=== PATIENT | female | born 1930 | race Caucasian/White ===

== ENCOUNTER 2017-07-16 17:25 | Emergency (ER) | payer OTHER ==
[~2017-07-16] VITALS: Ht 157.5 cm; Wt 68.0 kg
[2017-07-16 17:43] VITALS: Ht 157.5 cm; Wt 68.0 kg
[2017-07-16 18:28] LABS: BASOPHIL # 0.1 10^3/ul (0.0-0.1); BASOPHILS % 0.6 % (0.0-2.0); EOSINOPHILS # 0.2 10^3/ul (0.0-0.5); EOSINOPHILS % 1.2 % (0.0-7.0); HEMATOCRIT 45.2 % (37.0-47.0); HEMOGLOBIN 14.1 g/dl (12.0-16.0); LYMPHOCYTES # 1.2 10^3/ul (0.8-2.9); LYMPHOCYTES % 8.4 % (15.0-51.0); MEAN CORPUSCULAR HEMOGLOBIN 29.1 pg (29.0-33.0); MEAN CORPUSCULAR HGB CONC 31.2 g/dl (32.0-37.0); MEAN CORPUSCULAR VOLUME 93.2 fl (82.0-101.0); MEAN PLATELET VOLUME 10.4 fl (7.4-10.4); MONOCYTE # 0.7 10^3/ul (0.3-0.9); MONOCYTES % 5.3 % (0.0-11.0); NEUTROPHIL # 11.6 10^3/ul (1.6-7.5); NEUTROPHILS % 83.3 % (39.0-77.0); PLATELET COUNT 329 10^3/UL (140-415); RED BLOOD COUNT 4.85 10^6/ul (4.20-5.40); RED CELL DISTRIBUTION WIDTH 14.4 % (11.5-14.5); WHITE BLOOD COUNT 13.9 10^3/ul (4.8-10.8)
--- NOTE | 2017-07-16 18:36 | RADRPT ---
PROCEDURE: XR Chest. CLINICAL INDICATION: Shortness of breath. TECHNIQUE: A single portable view of the chest was obtained. COMPARISON: None FINDINGS: The aorta is tortuous and atherosclerotic. The cardiomediastinal silhouette is otherwise mildly enl arged. Bibasilar air space disease is seen which may represent atelectasis. The remaining lungs and pleural spaces are clear. The soft tissues and osseous structures demonstrate benign age related se nescent changes. Right axillary surgical clips are seen. IMPRESSION: 1. Mild cardiomegaly. 2. Bibasilar air space disease which may represent atelectasis. RPTAT: HPNM Physician Sanjeev Date Time Electronically viewed and signed by Physician Sanjeev on 07/16/2017 18:35 /
--- NOTE | 2017-07-16 18:37 | RADRPT ---
PROCEDURE: XR Hip. CLINICAL INDICATION: Right hip pain. Trauma TECHNIQUE: AP and frog-leg lateral views of the right hip were obtained. COMPARISON: None FINDINGS: Diffuse osteopenia is seen. A heavily comminuted intertrochanteric fracture of the right hip is seen . Displacement and angulation of the fracture fragments is seen. No other fracture is seen. No dislo cation is seen. 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 Surgical clips are seen in the vis ualized portions of the pelvis. IMPRESSION: Heavily comminuted intertrochanteric right hip fracture as detailed above. RPTAT: HPNM Physician Sanjeev Date Time Electronically viewed and signed by Physician Sanjeev on 07/16/2017 18:36 /
[2017-07-16 18:43] LABS: INR 0.96; PROTIME 12.9 Sec (11.9-14.9)
[2017-07-16 18:44] LABS: PARTIAL THROMBOPLASTIN TIME 33.5 Sec (25.0-35.0)
[2017-07-16 18:51] LABS: ANION GAP 15 (8-16); BLOOD UREA NITROGEN 22 mg/dl (7-20); CALCIUM 9.6 mg/dl (8.4-10.2); CARBON DIOXIDE 29 mmol/L (21-31); CHLORIDE 102 mmol/L (97-110); CREATININE 0.89 mg/dl (0.44-1.00); GLUCOSE 121 mg/dl (70-220); POTASSIUM 4.5 mmol/L (3.5-5.1); SODIUM 141 mmol/L (135-144)
[2017-07-16 19:04] LABS: TROPONIN-I < 0.012 ng/ml (0.00-0.12)
--- NOTE | 2017-07-16 19:25 | ERD ---
ER Documentation Chief Complaint Chief Complaint Right hip pain with rotation s/p ground level fall today HPI Patient is an 86-year-old female who presents with a fall. She came from a [facility]. There is a suspected hip fracture as her right leg is shortened and rotated. She was brought in by ambulance. She said that she lost her balance and fell around 4:30 PM today. She was given morphine 8 mg IV by paramedics. She is a full code. She had no other injuries. She is a [employer] member. ROS All systems reviewed and are negative except as per history of present illness. Allergies Allergies: Coded Allergies: No Known Allergy (Unverified , 07/16/17) PMhx/Soc History of Surgery: Yes (R-sided lumpectomy) Anesthesia Reaction: No Hx Neurological Disorder: No Hx Respiratory Disorders: Yes (COPD) Hx Cardiac Disorders: No Hx Psychiatric Problems: No Hx Miscellaneous Medical Probl: Yes (Breast CA) Hx Alcohol Use: No Hx Substance Use: No Hx Tobacco Use: No Smoking Status: Never smoker FmHx Family History: No diabetes Physical Exam Vitals Vital Signs Date Time Temp Pulse Resp B/P Pulse Ox O2 Delivery O2 Flow Rate FiO2 07/16/17 19:19 98.2 82 16 152/80 97 Room Air 2.0 07/16/17 17:43 98.1 98 18 152/85 91 Physical Exam Const: Moderate distress Head: Atraumatic Eyes: Normal Conjunctiva ENT: Normal External Ears, Nose and Mouth. Neck: Full range of motion..~ No meningismus. Resp: Clear to auscultation bilaterally Cardio: Regular rate and rhythm, no murmurs Abd: Soft, non tender, non distended. Normal bowel sounds Skin: No petechiae or rashes Back: No midline or flank tenderness Ext: Right leg shortening and rotated Neur: Awake and alert Psych: Normal Mood and Affect Result Diagram: 07/16/17181907/16/171819 Results 24 hrs Laboratory Tests Test 07/16/17 18:20 White Blood Count 13.910^3/ul Red Blood Count 4.8510^6/ul Hemoglobin 14.1g/dl Hematocrit 45.2% Mean Corpuscular Volume 93.2fl Mean Corpuscular Hemoglobin 29.1pg Mean Corpuscular Hemoglobin Concent 31.2g/dl Red Cell Distribution Width 14.4% Platelet Count 83705^3/UL Mean Platelet Volume 10.4fl Neutrophils % 83.3% Lymphocytes % 8.4% Monocytes % 5.3% Eosinophils % 1.2% Basophils % 0.6% Nucleated Red Blood Cells % 0.0/100WBC Neutrophils # 11.610^3/ul Lymphocytes # 1.210^3/ul Monocytes # 0.710^3/ul Eosinophils # 0.210^3/ul Basophils # 0.110^3/ul Nucleated Red Blood Cells # 0.010^3/ul Prothrombin Time 12.9Sec Prothrombin Time Ratio 1.0 INR International Normalized Ratio 0.96 Activated Partial Thromboplast Time 33.5Sec Sodium Level 141mmol/L Potassium Level 4.5mmol/L Chloride Level 102mmol/L Carbon Dioxide Level 29mmol/L Anion Gap 15 Blood Urea Nitrogen 22mg/dl Creatinine 0.89mg/dl Glucose Level 121mg/dl Calcium Level 9.6mg/dl Troponin I < 0.012ng/ml Procedures/MDM EKG read by me: Rate/Rhythm: Sinus tachycardia rate of 101 Intervals: Normal Impression: Sinus tachycardia without ischemia X-ray Hip 2V Interpreted by me: Bones: Right-sided intertrochanteric comminuted fracture Joints: No dislocation Foreign body: None Chest x-ray shows cardiomegaly per radiology. Patient is a 86-year-old female who presents with a mechanical fall and has a right-sided hip fracture. The patient has [facility] insurance and will be transferred to [facility] for continuity of care. The patient will need orthopedic fixation. She was given morphine 8 mg IV by paramedics just prior to arrival and feels better. I doubt other serious traumatic injury at this time. The patient will be transferred by ambulance to [facility]. Departure Diagnosis: Primary Impression: Hip fracture Encounter type: initial encounter Fracture type: closed Laterality: right Qualified Code: S72.001A - Closed fracture of right hip, initial encounter Additional Impression: Hip pain Laterality: right Qualified Code: M25.551 - Pain of right hip joint Condition: JOSÉ MIGUEL Heller MD Jul 16, 2017 19:25
[2017-07-16] MEDS ORDERED: HYDROmorphONE 1 MG/ML SYG IV STA (20:12)
[2017-07-16] MEDS ORDERED: SOD CHLORIDE 0.9% 1,000 ML IV STA (21:06)
[2017-07-16 22:00] VITALS: BP 158/89; PULSE 115; RESP 15
== END 2017-07-16 22:29 | disposition short-term general hospital (02) ==
LOC: E/R 17:25
DX: S72.001A Fracture of unspecified part of neck of right femur, initial encounter for closed fracture (principal); J44.9 Chronic obstructive pulmonary disease, unspecified; R06.02 Shortness of breath; W18.39XA Other fall on same level, initial encounter; Y92.009 Unspecified place in unspecified non-institutional (private) residence as the place of occurrence of the external cause; Z85.3 Personal history of malignant neoplasm of breast
CPT/HCPCS: 71010; 73510; 80048; 84484; 85025; 85610; 85730; 86850; 86900; 86901; 96374; 99285; J1170; J7030; 93005

== ENCOUNTER 2018-02-05 11:17 | Emergency (ER) | END 2018-02-05 16:37 | disposition short-term general hospital (02) ==

== ENCOUNTER 2018-04-24 04:45 | Emergency (ER) | END 2018-04-24 10:20 | disposition short-term general hospital (02) ==

== ENCOUNTER 2018-10-26 05:53 | Emergency (ER) | payer OTHER ==
[~2018-10-26] VITALS: Ht 162.6 cm; Wt 64.1 kg
[2018-10-26 06:02] VITALS: Ht 162.6 cm; Wt 64.1 kg
[2018-10-26] MEDS ORDERED: VANCOMYCIN 1 GM (PMX) 250 ML IVPB STA (06:43)
[2018-10-26] MEDS ORDERED: SOD CHLORIDE 0.9% 1,000 ML IV STA (06:43)
[2018-10-26] MEDS ORDERED: CEFEPIME 1GM/50 ML (PMX) 50 ML IVPB STA (06:43)
[2018-10-26] MEDS ORDERED: IPRATROPIUM (NEB) 0.5 MG/2.5 ML AMP INH ONE (07:00)
[2018-10-26] MEDS ORDERED: ALBUTEROL 0.083% (NEB) 2.5 MG/3 ML AMP INH ONE (07:00)
[2018-10-26] MEDS ORDERED: METHYLPREDNISOLONE 125 MG INJ IV ONE (07:00)
--- NOTE | 2018-10-26 08:56 | ERD ---
ER Documentation Chief Complaint Chief Complaint MALACHI from [facility], hallucinations,hx dementia HPI 88-year-old female from sn[facility] facility who presents to the emergency room with hallucinations. The patient does have baseline dementia. It appears over the past 24-48 hours the patient is having increasing hallucinations with paranoia. The patient herself describes approximately 1 day of cough and congestion. No significant shortness of breath though her oxygen saturation was noted to be 85 on room air. It is possibly reported that the patient has home oxygen requirement. Patient denies any chest pain or pressure, no headache, no abdominal pain nausea vomiting or diarrhea. ROS All systems reviewed and are negative except as per history of present illness. Allergies Allergies: Coded Allergies: No Known Allergy (Unverified , 10/26/18) PMhx/Soc History of Surgery: Yes (R-sided lumpectomy, HYSTERECTOMY) Anesthesia Reaction: No Hx Neurological Disorder: No Hx Respiratory Disorders: Yes (COPD) Hx Cardiac Disorders: Yes (HTN) Hx Psychiatric Problems: No Hx Miscellaneous Medical Probl: Yes (Breast CA) Hx Alcohol Use: No Hx Substance Use: No Hx Tobacco Use: No Smoking Status: Never smoker FmHx Family History: No diabetes Physical Exam Vitals Vital Signs Date Temp Pulse Resp B/P (MAP) Pulse Ox O2 O2 Flow FiO2 Time Delivery Rate 10/26/18 80 22 123/78 95 Mask 6.0 07:48 (93) 10/26/18 98.5 18 121/66 94 06:09 (84) 10/26/18 98.5 89 18 121/66 94 06:02 (84) Physical Exam General: Well developed, well nourished, no acute distress Head: Normocephalic, atraumatic. Eyes: Pupils equally reactive, EOM intact ENT: Moist mucous membranes Neck: Supple, no lymphadenopathy Respiratory: Scant wheezing bilaterally, rales on the right side lung field worse at the base. No respiratory distress Cardiovascular: RRR, no murmurs, rubs, or gallops Abdominal: Soft, non-tender, non-distended, no peritoneal signs : Deferred MSK: No edema, no unilateral swelling, 5/5 strength Neurologic: Patient is alert and oriented to person and place, conversive, moving all extremities. Skin: No rash Psych: Occasional hallucinations of paranoia Result Diagram: 10/26/1845 10/26/18644 Results 24 hrs Laboratory Tests Test 10/26/18 06:36 10/26/18 06:45 Urine Color YELLOW Urine Clarity CLOUDY Urine pH 5.0 Urine Specific [place] 1.016 Urine Ketones NEGATIVE mg/dL Urine Nitrite NEGATIVE mg/dL Urine Bilirubin NEGATIVE mg/dL Urine Urobilinogen NEGATIVE mg/dL Urine Leukocyte Esterase 3+ Diamante/ul Urine Microscopic RBC 4 /HPF Urine Microscopic WBC 131 /HPF Urine Bacteria MANY /HPF Urine Mucus FEW /HPF Urine Hemoglobin NEGATIVE mg/dL Urine Glucose NEGATIVE mg/dL Urine Total Protein NEGATIVE mg/dl Urine Opiates Screen Negative Urine Barbiturates Negative Urine Amphetamines Screen Negative Urine Benzodiazepines Screen Negative Urine Cocaine Screen Negative Urine Cannabinoids Negative White Blood Count 6.4 10^3/ul Red Blood Count 5.54 10^6/ul Hemoglobin 16.2 g/dl Hematocrit 49.8 % Mean Corpuscular Volume 89.9 fl Mean Corpuscular Hemoglobin 29.2 pg Mean Corpuscular Hemoglobin Concent 32.5 g/dl Red Cell Distribution Width 15.1 % Platelet Count 240 10^3/UL Mean Platelet Volume 11.1 fl Immature Granulocytes % 0.800 % Neutrophils % % Lymphocytes % % Monocytes % % Eosinophils % % Basophils % % Nucleated Red Blood Cells % 0.0 /100WBC Immature Granulocytes # 0.050 10^3/ul Neutrophils # 10^3/ul Lymphocytes # 10^3/ul Monocytes # 10^3/ul Eosinophils # 10^3/ul Basophils # 10^3/ul Nucleated Red Blood Cells # 10^3/ul Sodium Level 140 mmol/L Potassium Level 4.4 mmol/L Chloride Level 98 mmol/L Carbon Dioxide Level 34 mmol/L Anion Gap 8 Blood Urea Nitrogen 32 mg/dl Creatinine 1.01 mg/dl Est Glomerular Filtrat Rate mL/min mL/min Glucose Level 115 mg/dl Calcium Level 10.3 mg/dl Total Bilirubin 0.4 mg/dl Direct Bilirubin 0.00 mg/dl Indirect Bilirubin 0.4 mg/dl Aspartate Amino Transf (AST/SGOT) 44 IU/L Alanine Aminotransferase (ALT/SGPT) 22 IU/L Alkaline Phosphatase 54 IU/L Total Protein 6.8 g/dl Albumin 3.7 g/dl Globulin 3.10 g/dl Albumin/Globulin Ratio 1.19 Salicylates Level < 1.0 mg/dl Acetaminophen Level < 10.0 ug/ml Ethyl Alcohol Level < 10.0 mg/dl Current Medications Medications Dose Sig/Susie Start Time Status Last (Trade) Ordered Route PRN Stop Time Admin Dose Reason Admin Sodium 1,000 ml @ Q1H STAT 10/26/18 DC 10/26/18 Chloride 1,000 mls/hr IV 06:43 07:30 10/26/18 07:42 125 mg ONCE ONCE 10/26/18 DC 10/26/18 Methylprednis IV 07:00 07:32 olone Sodium 10/26/18 07:01 Succinate (Solu-Medrol) Albuterol 2.5 mg ONCE ONCE 10/26/18 DC 10/26/18 (Proventil INH 07:00 06:56 0.083% (Neb)) 10/26/18 07:01 Ipratropium 0.5 mg ONCE ONCE 10/26/18 DC 10/26/18 [place] INH 07:00 06:56 (Atrovent 10/26/18 07:01 0.02% (Neb)) Cefepime HCl 50 ml @ ONCE STAT 10/26/18 DC 10/26/18 100 mls/hr IVPB 06:43 07:32 10/26/18 07:12 Vancomycin 250 ml @ ONCE STAT 10/26/18 DC HCl 125 mls/hr IVPB 06:43 10/26/18 08:42 Procedures/MDM EKG, MONITORS, & DIAGNOSTIC IMAGING: Chest x-ray: I reviewed and interpreted a 1 view of the chest Mediastinum: No enlargement Cardiac silhouette: No cardiomegaly Airspace: Right lower lobe lung field atelectasis versus infiltrate Bones: No evidence of fracture LAB INTERPRETATION: I reviewed the laboratory testing and it shows no significant leukocytosis, positive urinary tract infection MEDICAL DECISION MAKING: The patient presents to the emergency room with possible hallucinations. However she is noted to have hypoxia, cough and right sided lung findings concerning for pneumonia. Given the patient's presentation this is possibly consistent with healthcare associated pneumonia. The patient has no Sirs criteria. She has no chest pain or chest pressure to suggest cardiac etiology. The patient's hallucinations are intermittent she is conversive and otherwise neurologically intact. I doubt acute intracranial process. The patient has evidence clinically of pneumonia and possible urinary tract infection which could explain her symptoms. Given the patient's age I believe she would benefit from breathing treatment, steroids given her underlying COPD as well as broad-spectrum antibiotics given h er intermediate residence. ER COURSE: * The patient does not meet SIRS criteria therefore does not require lactic acid or sepsis workup. Patient received IV fluids, breathing treatment, Solu- Medrol, vancomycin and cefepime * The patient's oxygen requirement has been titrated to nasal cannula. She is on 3-4 L. Given the patient's age, possible pneumonia and urinary tract infection inpatient hospitalization would be most appropriate. The patient is him dynamically stable not requiring positive pressure ventilation, central line or pressors * The patient is a [employer] member and will be transferred. She is stable for transfer and the benefits over the risks. CONSULTATION: [None] DISPOSITION PLAN: Accepting care team and consultations: I discussed the current laboratory data, diagnostic imaging and emergency care provided. [facility]. Medical authorization of [id number] Admitting team indication: Insurance directed Departure Diagnosis: Primary Impression: Healthcare-associated pneumonia Additional Impressions: Urinary tract infection Urinary tract infection type: acute cystitis Hematuria presence: without hematuria Qualified Codes: N30.00 - Acute cystitis without hematuria COPD with exacerbation History of dementia Condition: Stable BLACK SARAH MD Oct 26, 2018 08:56
[2018-10-26 10:50] VITALS: BP 164/81; PULSE 85; RESP 22
[2018-10-26] MEDS ORDERED: METO-448 PO (11:38)
[2018-10-26] MEDS ORDERED: ALBU2.5V3 NEB (11:38)
[2018-10-26] MEDS ORDERED: FURO40TA4 PO (11:38)
[2018-10-26] MEDS ORDERED: ALEN70TA5 PO (11:39)
[2018-10-26] MEDS ORDERED: ASPI81TA50 PO (11:40)
[2018-10-26] MEDS ORDERED: CITA20TA8 PO (11:41)
[2018-10-26] MEDS ORDERED: MULT-853 PO (11:41)
[2018-10-26] MEDS ORDERED: DONE5TAB7 PO (11:42)
[2018-10-26] MEDS ORDERED: DOCU100T PO (11:42)
[2018-10-26] MEDS ORDERED: SIMV20TA PO (11:43)
[2018-10-26] MEDS ORDERED: CALC1TAB93 PO (11:43)
[2018-10-26] MEDS ORDERED: TIOT4MIS5 IH (11:48)
[2018-10-26] MEDS ORDERED: TROS20TA2 PO (11:49)
[2018-10-26] MEDS ORDERED: SPIR25TA PO (11:49)
[2018-10-26] MEDS ORDERED: ADV25050 INHALATION (11:50)
[2018-10-26] MEDS ORDERED: POLY17PO28 PO (11:52)
[2018-10-26] MEDS ORDERED: ALBU18HF INHALATION (11:54)
[2018-10-26] MEDS ORDERED: [UNRECOGNIZED DRUG - CODE] PO (11:54)
== END 2018-10-26 11:37 | disposition short-term general hospital (02) ==
LOC: E/R 05:53
DX: J18.9 Pneumonia, unspecified organism (principal); N30.00 Acute cystitis without hematuria; J44.1 Chronic obstructive pulmonary disease with (acute) exacerbation; I10 Essential (primary) hypertension; Z85.3 Personal history of malignant neoplasm of breast; Z86.59 Personal history of other mental and behavioral disorders
CPT/HCPCS: 36415; 71045; 80053; 80307; 81001; 85025; 87040; 87400; 94664; 96374; 96375; 99285; J0692; J2930; J3370; J7030

== ENCOUNTER 2019-01-05 13:53 | Emergency (ER) | payer OTHER ==
[~2019-01-05] VITALS: Wt 75.0 kg
[~2019-01-05 13:53] MED LIST: ADV25050 INHALATION; ALBU18HF INHALATION; ALBU2.5V3 NEB; ALEN70TA5 PO; ASPI81TA50 PO; CALC1TAB93 PO; CITA20TA8 PO; DOCU100T PO; DONE5TAB7 PO; FURO40TA4 PO; METO-448 PO; MULT-853 PO; POLY17PO28 PO; SIMV20TA PO; SPIR25TA PO; TIOT4MIS5 IH; TROS20TA2 PO; [UNRECOGNIZED DRUG - CODE] PO
[2019-01-05] MEDS ORDERED: HYDROCODONE/APAP (10/325) TAB PO ONE (15:00)
[2019-01-05] MEDS ORDERED: IPRATROPIUM (NEB) 0.5 MG/2.5 ML AMP NEB STA (17:03)
[2019-01-05] MEDS ORDERED: ALBUTEROL 0.5% (NEB) 2.5 MG/0.5 ML AMP NEB STA (17:03)
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
[2019-01-05 18:17] VITALS: BP 135/78; PULSE 79; RESP 18
== END 2019-01-05 18:22 | disposition home or self-care (01) ==
LOC: E/R 13:53
DX: S00.03XA Contusion of scalp, initial encounter (principal); R40.2362 Coma scale, best motor response, obeys commands, at arrival to emergency department; R40.2252 Coma scale, best verbal response, oriented, at arrival to emergency department; S49.91XA Unspecified injury of right shoulder and upper arm, initial encounter; S13.9XXA Sprain of joints and ligaments of unspecified parts of neck, initial encounter; J44.1 Chronic obstructive pulmonary disease with (acute) exacerbation; I10 Essential (primary) hypertension; V00.811A Fall from moving wheelchair (powered), initial encounter; Y92.9 Unspecified place or not applicable; Z85.3 Personal history of malignant neoplasm of breast; Z79.82 Long term (current) use of aspirin
CPT/HCPCS: 70450; 71045; 72125; 72170; 94644